=== PATIENT | male | born 1950 | race Caucasian/White ===

== ENCOUNTER 2018-05-17 08:49 | Outpatient (REF) | payer MEDICARE, MEDICAID, SELFPAY ==
[2018-05-17 14:44] LABS: ALT 32 U/L (12-78); AST 17 U/L (15-37); Albumin 4.2 g/dL (3.4-5.0); Alkaline Phosphatase 78 U/L (46-116); Anion Gap 8.3 mmol/L (3-11); BUN 13 mg/dL (7-18); Bilirubin, Total 0.6 mg/dL (0.2-1.0); CO2 29.7 mmol/L (21.0-32.0); CREATININE 0.73 mg/dL (0.70-1.30); Calcium 9.2 mg/dL (8.5-10.1); Chloride 101 mmol/L (98-107); Cholesterol 149 mg/dL (50-200); Glucose 117 mg/dL (70-100); HDL Cholesterol 56 mg/dL (40-60); LDL CHOLESTEROL 82 mg/dL (<100); Potassium 4.2 mmol/L (3.5-5.1); Sodium 139 mmol/L (136-145); Triglyceride 71 mg/dL (30-150)
[2018-05-17 15:27] LABS: Hemoglobin A1C 5.8 % (4.5-6.2)
== END 2018-05-17 09:09 ==
LOC: NCHCN 08:49
PROVIDERS: PCP Nurse Practitioner; Visit Provider Nurse Practitioner
DX: I10 Essential (primary) hypertension (principal); R73.9 Hyperglycemia, unspecified
CPT/HCPCS: 80053; 80061; 83721; 83036

== ENCOUNTER → 2019-02-25 10:20 | Outpatient (BNVA) | payer MEDICARE, MEDICAID, SELFPAY | PROVIDERS: PCP Nurse Practitioner; Referring Provider Nurse Practitioner; Visit Provider Physical Therapy Assistant | DX: Z12.11 Encounter for screening for malignant neoplasm of colon (principal); Z86.010 Personal history of colon polyps; I10 Essential (primary) hypertension ==

== ENCOUNTER 2019-03-14 07:59 | Day surgery (SDC) | payer MEDICARE, MEDICAID, SELFPAY ==
--- NOTE | 2019-03-14 06:46 | W.COLOREPORT ---
Date of service: 03/14/19 Time of Service: 09:11 Colonoscopy Report Date of procedure: 03/14/19 Pre-op diagnosis general: Hx of polyps and Family history of colon cancer Post-op diagnosis procedure note: same (and polyps and diverticulosis) Procedure: Colonoscopy with polypectomy by cold forceps Surgeon: Peg Major Anesthesia proc note operative: other (General/ ASA 2/Dameon Ayers, ELLIE) Estimated blood loss (mL): 5 Pathology: other (cecal polyp, ascending colon polyp x3) Complications: None Disposition: same day Indications: Mr. Pichardo is a pleasant 68-year-old gentleman who was seen in the office for repeat colonoscopy. His last colonoscopy was in 2016 where he was noted to have 2 tubular adenomas. He also has a family history of colon cancer in his father. Risks, benefits and complications have been reviewed. Complications include but are not limited to bleeding, pain, perforation, missed small lesion/polyp, sore throat, aspiration and adverse reaction to the medications. Questions were entertained and answered to their satisfaction and they wished to proceed. No guarantees were given or implied. Prep: Miralax/Dulcolax Procedure Start Time: :11 Procedure End Time: :54 Retraction Time: 27 Findings: Marginal prep in the right bowel Multiple small polyps and diverticulosis Procedure Description: After informed consent was obtained the patient was taken to the procedure room and placed in a left decubitous position. Monitors were applied and a time out was done. The patients name, date of , procedure, allergies to medications and metal in their body was reviewed. The patient was then sedated. Once sedated and comfortable a rectal exam was done. External exam was normal. Internal exam revealed a normal sphincter tone and no palpable masses. I was unable to feel the prostate due to the patients body habitus. The scope was then introduced and retro-flexed. Small internal hemorrhoids were identified. The scope was then advanced to the cecum with some difficulty. pressure had to be applied to the abdomen. The TI and appendiceal orifice were identified. The prep was marginal in the right colon. 2 Liters of irrigation was used to clean the bowel. The scope was then slowly retracted over 27 minutes back into the rectum. Polyps were removed with cold forceps in the cecum and ascending colon x3. The scope was removed and the patient was woken up and taken back to Same day surgery in stable condition. The patient tolerated the procedure well and there were no immediate complications. Follow up: The patient should follow up in 3 years unless they develop changes in bowel habits or other new gastrointestinal complaints.
--- NOTE | 2019-03-14 06:48 | W.PM.DSUDISC ---
Discharge Plan Disposition Patient Disposition: HOME Condition: Good Discharge Details Reason For Visit: Hx of polyps and Family history of colon cancer Attending Provider: Peg Major Primary Care Provider: Magaly Amin Home Meds and New Rx's Prescriptions: Continued aspirin 81 MG tablet,chewable 81 mg PO DAILY RF: 0 hydrochlorothiazide 25 MG tablet 25 mg PO DAILY RF: 0 losartan 100 MG tablet 100 mg PO DAILY RF: 0 atorvastatin 10 MG tablet 10 mg PO DAILY RF: 0 naproxen 500 MG tablet 500 mg PO BID RF: 0 Discontinued polyethylene glycol 3350 17 gram/dose powder 238 g PO ONCE Qty: 238 RF: 0 bisacodyl [Dulcolax (bisacodyl)] 5 mg tablet,delayed release (DR/EC) 5 mg PO ONCE Qty: 4 RF: 0 Discharge Instructions Instructions: Colonoscopy (GEN), Diverticulosis (ED), Colorectal Polyps (GEN) Additional Instructions: Findings: 4 polyps Diverticulosis Follow up: 3 years Please call if you develop: fevers >101.5 Nausea or Vomiting Abdominal pain that is not transient DAY SURGERY UNIT POST COLONOSCOPY INSTRUCTIONS 1. Because there will be medication in your system for the next 24 hours, you may feel a little sleepy. Your coordination will be affected. Therefore: a. Do not drive or operate dangerous equipment for 24 hours. b. Do not drink alcohol beverages for 24 hours (not even beer). c. Plan to go home and rest for the day. 2. Generally there are no restrictions on your activity after a day or so has gone by, but you may feel a bit fatigued for a few days. 3 After you arrive home you may have a light meal and return to a normal diet as you can tolerate it without feeling sick to your stomach. 4. After surgery, you may feel pain or discomfort. This should be only transient, but if it persists please contact your doctor. 5. If there are any questions regarding the findings of your procedure, please feel free to contact your doctor. 6. If you are unable to contact your doctor with a problem, contact the hospital at [phone]. 7. Continue all your regular medications unless directed otherwise. I understand the above instructions and have no questions. Signature of Patient or Responsible Adult Escort Date/Time Name of Responsible Adult Escort Signature of Nurse Date/Time Stand Alone Forms: Nirav Mendoza (RONELU) Activity:: Activity as Tolerated Diet:: High Fiber diet Discharge Orders Discharge Orders: Discharge Order (Routine); Ordered 03/14/19 Ordered By: Peg Major DS: Diagnosis Discharge Diagnosis (1) S/P colonoscopy: Status: Acute (2) Diverticulosis: Status: Acute (3) Colorectal polyps:
[2019-03-14 08:19] VITALS: BP 159/84; PULSE 78; RESP 16; TEMP 36.3; O2SAT 96
[2019-03-14] MEDS: Lactated Ringers 1,000 ML 80 ML IV (08:46)
--- NOTE | 2019-03-14 09:28 | BOWEL_PTH ---
PATIENT: Abisai Pichardo LOC: [facility] U#:[id number] AGE/SX: 68/M ROOM: RE03/14/[address]: Peg Major MD : [id number] BED: DIS: 03/14/2019 SPEC #: [id number] RECD: 03/14/19 12:00 STATUS: VALERIE REQ #: [id number] MAE: 03/14/19 09:[address]: Peg Major DEPT: Surgical Specimen RECD BY: Ilda Carrasco ENTERED: 03/14/19 12:02 SP TYPE: Bowel OTHR DR: Magaly Amin Tissues: 1 - BIOPSY BOWEL 2 - BIOPSY BOWEL Procedures: GROSS AND MICRO LEVEL 4 Comments: [id number]
[2019-03-14 10:30] VITALS: BP 134/71; PULSE 67; RESP 18; TEMP 36.1; O2SAT 98
== END 2019-03-14 10:45 | disposition home or self-care (01) ==
LOC: SUR 08:00
PROVIDERS: PCP Nurse Practitioner; Visit Provider Surgery
PROC: 0DJD8ZZ Inspection of Lower Intestinal Tract, Via Natural or Artificial Opening Endoscopic (ICD-10-PCS; CPT 45378; principal; 2019-03-14 09:30)
DX: Z12.11 Encounter for screening for malignant neoplasm of colon (principal); D12.0 Benign neoplasm of cecum; D12.2 Benign neoplasm of ascending colon; K57.30 Diverticulosis of large intestine without perforation or abscess without bleeding; K64.0 First degree hemorrhoids; Z86.010 Personal history of colon polyps; Z80.0 Family history of malignant neoplasm of digestive organs; G47.33 Obstructive sleep apnea (adult) (pediatric); I10 Essential (primary) hypertension
CPT/HCPCS: 45380; 88305

== ENCOUNTER 2019-05-20 09:13 | Outpatient (CLI) | payer MEDICARE, SELFPAY ==
[2019-05-20 10:03] LABS: Abs Immature Grans 0.02 k/cumm (0.0-0.09); Absolute Basophil Count 0.02 k/cumm (0.0-0.2); Absolute Eosinophil Count 0.19 k/cumm (0.0-0.7); Absolute Lymphocyte Count 1.78 k/cumm (1.2-3.4); Absolute Monocyte Count 0.74 k/cumm (0.11-0.7); Absolute Neutrophil Count 4.16 k/cumm (1.2-6.7); Basophils % 0.3; Eosinophils % 2.7; HCT 39.6 % (40.0-50.0); HGB 13.4 g/dL (13.5-17.5); Immature Grans % 0.3; Lymphocytes % 25.8; Mean Corp. HGB Concentration 33.8 g/dL (32.0-36.0); Mean Corpuscular Hemoglobin 28.9 pg (27.0-33.0); Mean Corpuscular Volume 85.3 fL (80-95); Mean Platelet Volume 9.3 fL (8.0-11.0); Monocytes % 10.7; Neutrophils % 60.2; Platelet Count 282 x1000/uL (130-400); RBC 4.64 m/cumm (4.50-6.00); RBC Distribution Width 13.1 % (11.8-14.1); White Blood Cell Count 6.91 k/cumm (4.4-10.8)
[2019-05-20 11:29] LABS: ALT 32 U/L (16-63); AST 17 U/L (15-37); Albumin 3.8 g/dL (3.4-5.0); Alkaline Phosphatase 74 U/L (46-116); Anion Gap 9.9 mmol/L (3-11); BUN 11 mg/dL (7-18); Bilirubin, Total 0.5 mg/dL (0.2-1.0); CO2 26.1 mmol/L (21.0-32.0); CREATININE 0.62 mg/dL (0.70-1.30); Calcium 9.1 mg/dL (8.5-10.1); Chloride 104 mmol/L (98-107); Glucose 97 mg/dL (70-100); Potassium 3.9 mmol/L (3.5-5.1); Sodium 140 mmol/L (136-145); Total Protein 6.7 g/dL (6.4-8.2)
[2019-05-20 12:13] LABS: D-Dimer 674 ng/mlFEU (<500)
[2019-05-20 12:26] LABS: ESR 10 mm/hr (1-20)
[2019-05-20 12:36] LABS: C-Reactive Protein 0.45 mg/dL (0.0-0.3)
== END 2019-05-20 09:33 ==
PROVIDERS: PCP Nurse Practitioner; Visit Provider Family Medicine
DX: I87.319 Chronic venous hypertension (idiopathic) with ulcer of unspecified lower extremity (principal); I10 Essential (primary) hypertension; R60.0 Localized edema
CPT/HCPCS: 36415; 80053; 85652; 85025; 85379; 86140

== ENCOUNTER 2019-05-23 01:52 | Outpatient (CLI) | payer MEDICARE, MEDICAID, SELFPAY ==
--- NOTE | 2019-05-23 12:20 | DI.US_ITS ---
EXAM: US LOWER EXTREMITY VENOUS RT CLINICAL HISTORY: RT LEG EDEMA R60.0 TECHNIQUE: Ultrasound performed using standard protocol. COMPARISON: No exams were available for comparison FINDINGS: Common femoral, femoral, and popliteal veins show normal compression, augmentation, and blood flow. There is no evidence of a deep venous thrombus in the right lower extremity. The saphenofemoral junc tion appears unremarkable. There is edema seen in the soft tissues of the lower extremity. IMPRESSION: No evidence of a right lower extremity deep venous thrombus.
== END 2019-05-23 02:12 ==
PROVIDERS: PCP Nurse Practitioner; Visit Provider Family Medicine
DX: R60.0 Localized edema (principal)
CPT/HCPCS: 93971

== ENCOUNTER → 2019-05-27 09:17 | Outpatient (BNVA) | payer MEDICARE, MEDICAID, SELFPAY | PROVIDERS: PCP Nurse Practitioner; Referring Provider Nurse Practitioner; Visit Provider Surgery | DX: Z51.89 Encounter for other specified aftercare (principal); I83.012 Varicose veins of right lower extremity with ulcer of calf; I83.891 Varicose veins of right lower extremity with other complications; I87.2 Venous insufficiency (chronic) (peripheral); L97.919 Non-pressure chronic ulcer of unspecified part of right lower leg with unspecified severity | CPT/HCPCS: 99213 ==

== ENCOUNTER 2019-05-27 11:14 | Outpatient (REF) | payer MEDICARE, SELFPAY ==
[2019-05-27 18:53] LABS: BUN 15 mg/dL (7-18); CREATININE 0.73 mg/dL (0.70-1.30); Calcium 9.5 mg/dL (8.5-10.1); Chloride 98 mmol/L (98-107); Glucose 111 mg/dL (70-100); Potassium 3.6 mmol/L (3.5-5.1); Sodium 137 mmol/L (136-145)
[2019-05-30 16:15] LABS: Hepatitis C Ab w Rflx HCV PCR Negative (NEGAT)
== END 2019-05-27 11:34 ==
LOC: NCHCN 11:14
PROVIDERS: PCP Nurse Practitioner; Visit Provider Family Medicine
DX: Z00.00 Encounter for general adult medical examination without abnormal findings (principal); I10 Essential (primary) hypertension; Z11.59 Encounter for screening for other viral diseases
CPT/HCPCS: 80048; 86803

== ENCOUNTER 2019-06-08 00:33 | Outpatient (CLI) | payer MEDICARE, MEDICAID, SELFPAY ==
--- NOTE | 2019-06-08 07:30 | DI.US_ITS ---
APPROVED REPORT EXAM: Comprehensive 2D, Doppler, and color-flow Echocardiogram Patient Location: Out-Patient Timber Girdler: Isis Caballero [facility] ([facility]) Rhythm: sinus Bradycardia Indications: mild aortic stenosis. i35.0 Conclusion Left Ventricle : The left ventricle is normal size. The left ventricular systolic function is normal. LV segmental wall motion appears normal. LVEF is 60-65%. There is grade 1 diastolic dysfunction. Right Ventricle : Right ventricle is dilated. The right ventricular systolic function is normal. Atria : The right atrium size is normal. Left atrium is dilated. Aortic Valve : Aortic valve is trileaflet. Aortic valve leaflets, and annulus are moderately scleroti c and thickened. Mild to moderate aortic regurgitation. Moderate to severe aortic stenosis. GARRY by VT I is 0.96cm2. Mean gradient is 35mmHg Mitral Valve : There is mild mitral annular calcification. Trivial to mild mitral regurgitation. No e vidence of mitral valve stenosis. Tricuspid Valve : The tricuspid valve is normal in structure. Trivial tricuspid regurgitation. Pulmonic Valve : Pulmonic valve leaflets are mildly thickened. Great Vessels : The ascending aorta is mildly dilated (4.1cm). IVC is normal in size and collapses >5 0% with inspiration. RVSP equals 21-24 mmHg. Compared to echocardiogram dated 10/10/2013, aortic valve stenosis has worsened. Wall motion Left Ventricle The left ventricle is normal size. The left ventricular systolic function is normal. There is top nor mal left ventricular wall thickness. LV segmental wall motion appears normal. There is grade 1 diasto lic dysfunction LVEF is 60-65%. Right Ventricle Right ventricle is dilated. The right ventricular systolic function is normal. Atria Left atrium is dilated. The right atrium size is normal. Aortic Valve Aortic valve is trileaflet. Aortic valve leaflets, and annulus are moderately sclerotic and thickened . Moderate to severe aortic stenosis. GARRY by VTI = 0.96cm2. Mean gradient = 35mmHg Mild to moderate a ortic regurgitation. Mitral Valve There is mild mitral annular calcification. No evidence of mitral valve stenosis. Trivial to mild srinivasan ral regurgitation. Tricuspid Valve The tricuspid valve is normal in structure. Trivial tricuspid regurgitation. Pulmonic Valve Pulmonic valve leaflets are mildly thickened. trivial pulmonic regurgitation. Great Vessels Aortic root is mildly dilated. The ascending aorta is mildly dilated (4.1cm). IVC is normal in size a nd collapses >50% with inspiration. RVSP equals 21-24 mmHg. Pericardium There is no pericardial effusion. 2D Dimensions IVSd 1.14 cm M: 0.6-1.2 LV EDV A2C 120.80 mL PWd 1.09 cm M: 0.6 - 1.2 LV EDV A4C 149.00 mL LVDd 4.96 cm M: 4.2 - 5.9 LA Volume Index A2C 36.27 mL/m2 LVDs 3.12 cm M: 2.5 - 4.0 LA Volume Index A4C 37.67 mL/m2 Aortic Root 3.66 cm M: 3.1 - 3.7 LA Volume Index Biplane 38.37 mL/m2 RA Area A4C 15.47 cm2 LA Area A4C 23.64 cm2 LVOT 2.23 cm (M/F) 1.5-2.5 LA Area A2C 24.08 cm2 Ascending Aorta 4.06 cm M: 2.6 - 3.4 EF AP4 64.50 % LVEF (Teich) 66.78 % EF AP2 61.42 % LVEF (Gordon's) 63.02 % M: 52 - 72 EF BP 63.02 % LV Volume 96.42 mL M: 62 - 150 LV Volume Index 41.20 mL/m2 M: 34 - 74 FS 37.07 % LV Diastology E/A Ratio 1.0 MED E' 0.08 (>0.07 m/s) LV E/e MED 10.57 (<14) LAT E' 0.09 (>0.1 m/s) LV E/e LAT 9.87 (<14) Pulm Vein s 0.37 m/s PV S/D Ratio 1.11 Pulm Vein d 0.33 m/s Pulm Vein a 0.25 m/s A-A Duration 127.08 msec Aortic Valve LVOT Area 3.91 cm2 LVOT Peak Tony. 0.92 m/s LVOT Mean Tony. 0.64 m/s LVOT Peak Gr. 3.42 mmHg GARRY Vmax Index 0.39 cm2/m2 LVOT Mean Gr. 1.85 mmHg LVOT VTI 0.23 m GARRY Mean Tony. Index 0.39 cm2/m2 AoV Peak Tony. 3.99 (0.5-1.3 m/s) AoV Mean Tony. 2.76 m/s AI PHT 611.52 msec AO Peak GR. 63.59 mmHg AO Mean GR. 34.72 (<5 mmHg) VTI Ratio 0.24 AV Regurg Decel. 2108.70 msec GARRY (VTI) 0.96 (2.5-4.5 cm2) GARRY (VTI) Index 0.41 cm/m2 Mitral Valve MV E Max Tony. 0.84 (0.4-1.3 m/s) MV A Velocity 0.84 (0.4-1.3 m/s) E/A Ratio 1.01 MV Decel. Time 248.26 (160-240 msec) MV PHT 71.99 msec MVA PHT 3.06 cm2 Tricuspid Valve TR P. Velocity 2.30 m/s TV Regurg Vmax 2.30 m/s TR P. Gradient 21.12 mmHg
== END 2019-06-08 00:53 ==
PROVIDERS: PCP Nurse Practitioner; Visit Provider Family Medicine
DX: I35.0 Nonrheumatic aortic (valve) stenosis (principal); I07.1 Rheumatic tricuspid insufficiency
CPT/HCPCS: 93306

== ENCOUNTER → 2019-06-17 08:49 | Outpatient (BNVA) | payer MEDICARE, MEDICAID, SELFPAY | PROVIDERS: PCP Nurse Practitioner; Referring Provider Nurse Practitioner; Visit Provider Surgery | DX: I83.891 Varicose veins of right lower extremity with other complications (principal) | CPT/HCPCS: 99212 ==

== ENCOUNTER 2019-08-12 07:53 | Outpatient (CLI) | payer MEDICARE, MEDICAID, SELFPAY | END 2019-08-12 08:13 | PROVIDERS: PCP Nurse Practitioner; Visit Provider Internal Medicine Cardiovascular Disease | DX: I35.0 Nonrheumatic aortic (valve) stenosis (principal); I10 Essential (primary) hypertension | CPT/HCPCS: 99214; 93005; 93010 ==

== ENCOUNTER 2024-12-01 13:26 | Emergency (ER) | payer MEDICARE, MEDICAID, SELFPAY ==
[2024-12-01] VITALS (27 sets, daily range): BP systolic 73–153; BP diastolic 50–101; PULSE 49–146; RESP 14–35; TEMP 36.7–36.8; O2SAT 92–97
--- NOTE | 2024-12-01 13:15 | RT.EKG_ITS ---
APPROVED REPORT Exam: Resting ECG Reason for Exam: Chest Pain Patient Location: E HR:125 bpm ECG Measurements Heart Rate 125 AXIS MD [id number] P [id number] QRSd 97 QRS 79 QT 338 T 138 QTc 488 Conclusion Atrial fibrillation...V-rate 82-172, irreg A-activity Nonspecific T abnormalities, lateral leads...T <-0.10mV, I aVL V5 V6
--- NOTE | 2024-12-01 13:50 | W.ED.GENAD ---
Discharge Plan Disposition Patient Disposition: Home Condition: Stable Discharge Details Clinical Impression: Aortic stenosis, A-fib Primary Care Provider: Unknown,Unknown ED Provider: Lei Zamarripa Home Meds and New Rx's Prescriptions: New Eliquis 5 mg tablet 5 mg PO BID Qty: 60 0RF metoprolol succinate 25 mg tablet extended release 24 hr 25 mg PO DAILY Qty: 30 0RF furosemide [Lasix] 20 mg tablet 20 mg PO DAILY Qty: 30 0RF Discharge Instructions Additional Instructions: I have placed you on a follow-up list to try and see a customer support coordinator soon as possible. Please take the furosemide, metoprolol and Eliquis as prescribed. You can follow-up with your primary care provider as well if you are not able to see the customer support coordinator in the next week or 2. If you feel significantly more ill, more short of breath or have severe chest pain return to the emergency department for reevaluation. HPI General Mode of arrival: ambulatory. Date/Time Provider Initiated Documentation: 12/01/24 13:28. Limitations to Documentation: no limitations. Information obtained by: patient. History of Present Illness 73 year old M presents to the emergency department with the chief complaint of dyspnea with exertion, described as moderate, Patient started experiencing this year(s) (1) and it has been constant. Rest improves symptom(s), Movement worsens symptoms . Patient notes shortness of breath; denies chest pain and fever/chills. Patient did receive the following treatments prior to arrival, none Related Data Home Medications ?Medication ?Instructions ?Recorded ?Confirmed apixaban 5 mg tablet (Eliquis) 5 mg PO BID #60 tabs 12/01/24 furosemide 20 mg tablet (Lasix) 20 mg PO DAILY #30 tabs 12/01/24 metoprolol succinate 25 mg 25 mg PO DAILY #30 tabs 12/01/24 tablet,extended release 24 hr Previous Rx's ?Medication ?Instructions ?Recorded apixaban 5 mg tablet (Eliquis) 5 mg PO BID #60 tabs 12/01/24 furosemide 20 mg tablet (Lasix) 20 mg PO DAILY #30 tabs 12/01/24 metoprolol succinate 25 mg 25 mg PO DAILY #30 tabs 12/01/24 tablet,extended release 24 hr Allergies Allergy/AdvReac Type Severity Reaction Status Date / Time No Known Allergies Allergy Verified 12/01/24 13:33 General Stated Complaint: SOB FLAVIO: 3 Review of Systems All systems reviewed & are unremarkable except as noted in HPI and below Constitutional Constitutional: Denies chills, Denies fever(s) and Denies weakness Cardiovascular Cardiovascular: Denies chest pain and Reports dyspnea Respiratory Respiratory: Denies cough and Reports dyspnea Gastrointestinal Gastrointestinal: Denies abdominal pain, Denies nausea and Denies vomiting Neurologic Neurologic: Denies weakness Psychiatric Psychiatric: Denies depression Exam Const General: no acute distress Orientation: alert HENMT Head: normal to inspection Ears: external ears normal General nose exam: external nose normal Mouth: moist mucous membranes Eyes General: appearance normal, both eyes and all related structures Neck Neck: normal visual inspection Resp Effort & Inspection: normal respiratory effort and able to speak in complete sentences Auscultation: clear to auscultation bilaterally Cardio Jugular venous pressure: no JVD Rate: regular rate Heart Sounds: murmur Skin General skin exam: no rashes or lesions noted Neuro General: patient alert and patient oriented x3 Extrem General: normal to inspection Psych Mental Status: mental status grossly normal Course Vital Signs Vital signs: Vital Signs Temperature 36.8 C 12/01/24 13:29 Pulse 49 L 12/01/24 13:29 Respiratory Rate 16 12/01/24 13:29 Blood Pressure 153/81 H 12/01/24 13:29 Pulse Oximetry 96 12/01/24 13:29 Temperature 36.8 C 12/01/24 13:29 Temperature Source Temporal Artery Scan 12/01/24 13:29 Pulse 49 L 12/01/24 13:29 Respiratory Rate 16 12/01/24 13:29 Blood Pressure 153/81 H 12/01/24 13:29 Blood Pressure Position Sitting 12/01/24 13:29 Pulse Oximetry 96 12/01/24 13:29 Oxygen Delivery Method Room Air 12/01/24 13:29 Oxygen Flow Rate 0 12/01/24 13:29 Pain Level 0 12/01/24 13:29 Medical Decision Making 73-year-old male with a history of hypertension but not on any meds currently and has known aortic stenosis and has not seen a medical provider or customer support coordinator in 4-1/2 years comes in with worsening dyspnea with exertion over the past year. Denies any chest pain or fevers. He is well-appearing speaking full sentences. He says that he has not had any falls or trauma. He does have a harsh systolic murmur that started at the right sternal border. Clear lung sounds, no JVD, no calf tenderness. I suspect his symptoms are due to aortic stenosis, will check a CBC, CMP and troponins and a chest x-ray. His EKG does show A-fib which would also be a new diagnosis for him. Other than elevated proBNP labs show no significant findings. Delta troponin pending. X-ray does show signs of CHF. I will give him a dose of Lasix as he has been on this back when he was seen cardiology in 2020. We do not have echocardiogram capabilities tomorrow. I did reach out to [facility] but they unfortunately unable accept any transfers and after discussion with patient the patient declines to be transferred at this current time. He is currently hemodynamically stable, he is in new A-fib with rates in the 90-100,and after discussion with him I am going to initiate Eliquis therapy for him. I will prescribe him furosemide and low-dose metoprolol. I will place a referral to see cardiology soon as possible. Return precautions given Differential Diagnosis Differential Diagnosis: aortic stenosis, anemia, acs Medical Records Medical records reviewed: Yes I reviewed the patient's medical records. Lab Data Lab results reviewed: Yes I reviewed the patient's lab results. ECG Data Attestation: I personally reviewed and interpreted this ECG (s) as follows: Prior ECG tracings: available for review Interpretation: Afib rate of 125 no stemi Quality:SDOH Health Related Social Needs: No Data to Display PFSH All Active Problems (Updated 12/01/24 @ 16:10 by Lei Zamarripa MD) A-fib (Chronic) Aortic stenosis (Chronic) Venous stasis ulcer of ankle limited to breakdown of skin (Acute) Leg edema (Acute) Venous stasis dermatitis (Acute) Venous stasis ulcer of right lower leg with edema of right lower leg (Acute) Diverticulosis (Acute) Hyperlipidemia (Chronic) Aortic stenosis, mild (Chronic) Hypertension (Chronic) Osteoarthritis of left knee (Acute 06/27/13) uses device Medical History (Updated 12/01/24 @ 16:10 by Lei Zamarripa MD) Colorectal polyps Obstructive sleep apnea Elevated glucose Adenomatous colon polyp Degenerative joint disease of spine Chronic pain Obesity Ventricular hypertrophy Surgical History History of bilateral knee replacement Arthroplasty (06/27/13) Total knee, Left Social History (Updated 08/12/19 @ 09:07 by Ruth Ferrer RN) Smoking/Tobacco Use Status: Former Tobacco Use Quit Date: 02/24/85 Smoking risk assessment performed?: Yes Alcohol Intake: current Alcohol Intake frequency: 0-2 drinks per day Alcohol type: beer Drug use: Daily Substance use type: marijuana What type of physical activity do you participate in: none Do you feel safe at home: Yes Do you feel safe in your relationship?: Yes PAWSS Have you Been Recently Intoxicated or Drunk Within the Last 30 days?: No Have you Ever Experienced Previous Episodes of Alcohol Withdrawal?: No Have you ever Experienced Withdrawal Seizures?: No Have you ever Experienced Delirium Tremens(DT)s?: No Have you ever undergone Alcohol Rehabilitation Treatment (i.e, inpt ot outpatient treatment programs)?: No Have you ever Experienced Blackouts?: No Have you ever Combined Alcohol with other Downers within the last 90 days?: No Have you ever Combined Alcohol with any other Substance of Abuse during the last 90 days?: No Positive Blood Alcohol level on Presentation? [PCS.BAL]: No Evidence of Increased Autonomic Activity (i.e. HR>120, tremor, sweating, agitation, nausea)?: No Result: 0
[2024-12-01 14:05] LABS: Abs Immature Grans 0.01 10^3/uL (0.0-0.06); Absolute Basophil Count 0.05 10^3/uL (0.0-0.2); Absolute Eosinophil Count 0.05 10^3/uL (0.0-0.7); Absolute Lymphocyte Count 1.19 10^3/uL (1.2-3.4); Absolute Monocyte Count 0.59 10^3/uL (0.1-0.8); Absolute Neutrophil Count 6.24 10^3/uL (1.2-6.7); Basophils % 0.6 %; Eosinophils % 0.6 %; HCT 44.8 % (40.0-50.0); HGB 14.5 g/dL (13.5-17.5); Immature Grans % 0.1 %; Lymphocytes % 14.6 %; MCH 28.4 pg (27.0-33.0); MCHC 32.4 % (32.0-36.0); MCV 88 fL (80-95); MPV 9.3 fL (8.0-11.0); Monocytes % 7.3 %; Neutrophils % 76.8 %; Platelet Count 258 10^3/uL (130-400); RBC 5.11 10^6/uL (4.36-5.78); RDW 14.6 % (11.8-14.1); RDW-SD 47.2 fL; WBC 8.13 10^3/uL (4.4-10.8)
[2024-12-01 14:19] LABS: INR 1.2 (0.9-1.1); PTT Activated 26.3 sec (20.6-30.2); Prothrombin Time 11.5 sec (9.1-11.1)
--- NOTE | 2024-12-01 14:23 | DI.RAD_ITS ---
Exam(s) XR PORTABLE CHEST AP EXAM: XR PORTABLE CHEST AP CLINICAL HISTORY: shortness of breath TECHNIQUE: 2D digital imaging was performed. COMPARISON: No exams were available for comparison FINDINGS: Overlying monitoring leads. LUNGS: Blunting at the right costophrenic angle. Question of mild blunting at the left costophrenic angle. Linear atelectasis or scarring in the left mid lung field. No focal area of consolidation. There is vascular prominence of the peribronchial thickening which could indicate mild CHF. HEART: Enlarged. AORTA: Normal diameter. BONES: Unremarkable for age. Soft tissues: Unremarkable. IMPRESSION: Tiny bilateral pleural effusions. Cardiomegaly and mild CHF. DATA REPOSITORY: RADIATION DOSE DELIVERED:
[2024-12-01 14:27] LABS: ALT 20 U/L (16-63); AST 18 U/L (15-37); Albumin 3.9 g/dL (3.4-5.0); Alkaline Phosphatase 140 U/L (46-116); Anion Gap 9.7 mmol/L (3-11); BUN 16 mg/dL (7-18); Bilirubin, Total 1.8 mg/dL (0.2-1.0); CO2 24.3 mmol/L (21.0-32.0); Calcium 9.2 mg/dL (8.5-10.1); Chloride 104 mmol/L (98-107); Estimated GFR 80.47 (mL/min/1.73m2); Glucose 128 mg/dL (74-106); Magnesium 1.9 mg/dL (1.8-2.4); NT-proBNP 6594 pg/mL (<300); Potassium 4.1 mmol/L (3.5-5.1); Sodium 138 mmol/L (136-145); Total Protein 7.5 g/dL (6.4-8.2); Troponin I 36 ng/L (<or=76)
[2024-12-01 15:12] LABS: Troponin I 40 ng/L (<or=76)
[2024-12-01] MEDS: Furosemide 20 MG/2 ML VIAL IVP (15:45)
[2024-12-01] MEDS: Metoprolol CR 25 MG TABCR PO (16:40)
== END 2024-12-01 16:53 | disposition home or self-care (01) ==
PROVIDERS: Emergency Provider Emergency Medicine
DX: I48.91 Unspecified atrial fibrillation (principal); I35.0 Nonrheumatic aortic (valve) stenosis
CPT/HCPCS: 99285; 99284; 96374; 80053; 93005; 71045; 83735; 83880; 84484; 85025; 85610; 85730; 93010; J1938

== ENCOUNTER 2024-12-07 02:03 | Outpatient (CLI) | payer MEDICARE, MEDICAID, SELFPAY ==
--- NOTE | 2024-12-07 10:30 | DI.US_ITS ---
APPROVED REPORT EXAM: Comprehensive 2D, Doppler, and color-flow Echocardiogram Patient Location: Out-Patient Amplifier Mechanic: Adrian Catherine RDCS ([facility]) Indications: New onset afib Other Information Study Quality: Adequate Conclusion Mildly dilated left ventricle. Ejection fraction is 35%. There is global hypokinesis Right ventricle is enlarged and hypocontractile Both atria are severely enlarged The aortic valve is calcified and probably trileaflet. There is mild aortic regurgitation. There is severe aortic stenosis. Peak gradient is 65, mean 47 mmHg. Calculated aortic valve area 0.7 cm?? Mitral annular calcification, thickened mitral leaflets. Moderate mitral regurgitation Moderate tricuspid regurgitation. Estimated right ventricular systolic pressure is 40 mmHg Dilated ascending aorta measuring 4.13 cm Wall motion Left Ventricle Left ventricle is mildly dilated. Left ventricular systolic function is moderately decreased. There i s normal left ventricular wall thickness. There is global hypokinesis of the left ventricle. There is no ventricular septal defect visualized. LVEF is 35%. Right Ventricle Right ventricle is moderately dilated. Right ventricle is hypokinetic. Atria Left atrium is severely dilated. Right atrium is severely dilated. The interatrial septum is intact w ith no evidence for an atrial septal defect. Aortic Valve Aortic valve is calcified. Aortic valve is probably trileaflet. Severe aortic stenosis. Peak aortic v alve gradient is 65.46 mmHg. Highest mean aortic valve gradient is 42.42 mmHg. Calculated GARRY by the continuity equation is 0.7 cm2. Mild aortic regurgitation. Mitral Valve The mitral valve is moderately thickened. Mild mitral annular calcification. No evidence of mitral va lve stenosis. Moderate mitral regurgitation. Tricuspid Valve The tricuspid valve is normal in structure. There is no tricuspid valve stenosis. Moderate tricuspid regurgitation. The RVSP is 40.3 mmHg. Pulmonic Valve Pulmonic valve is not well visualized. There is no pulmonic valvular stenosis. There is no pulmonic v alvular regurgitation. Great Vessels The aortic root is normal in size. The ascending aorta is severely dilated. Aortic arch is normal in caliber. The IVC collapses <50% with inspiration. Pericardium There is no pericardial effusion. 2D Dimensions IVSD d PLAX 1.06 cm M: 0.6-1.2 Ao Root d 3.26 cm M: 3.1 - 3.7 LVPW d PLAX 1.06 cm M: 0.6 - 1.2 Ao Asc Diam d 4.13 cm M: 2.6 - 3.4 LVID d PLAX 7.09 cm M: 4.2 - 5.8 LVDs 6.08 cm M: 2.5 - 4.0 LV EF Teichholz 29.6 % FS 14.33 % LV EDV (Teich) 263.1 mL LV ESV (Teich) 185.3 mL Stroke Vol Index (Teich) 34.00 M-Mode TAPSE 1.02 cm (M/F) >1.7 Auto EF LV EDV A4C 201.3 mL LV EDV A2C 254.7 mL LV EDV BP 230.0 mL LV ESV A4C 139.4 mL LV ESV A2C 169.5 mL LV ESV BP 153.8 mL LVEF(%) A4C 30.7 % LVEF(%) A2C 33.4 % LVEF(%) BP 33.1 % LV SV A4C 61.9 ml LV SV A2C 85.2 ml LV SV BP 76.2 ml LV CO A4C 5.6 L/min LV CO A2C 9.6 L/min LV CO BP 7.6 L/min HR A4C 90.91 BPM HR A2C 113.15 BPM LV EDV Index (BP) LA Volume LA Length A4C 7.2 cm LA Length A2C 6.3 cm LA Area A4C s 29.67 cm2 LA Area A2C s 24.90 cm2 LA Vol A4C A-L 104.35 mL LA Vol A2C A-L 83.27 mL LA Vol Biplane A-L 99.2 mL LA Vol/BSA A4C A-L LA Vol/BSA A2C A-L LA Vol/BSA BP A-L 43.3 mL/m2 LA Vol A4C MOD 103.1 mL LA Vol A2C MOD 81.2 mL LA Vol BP MOD 97.1 mL RA Volume RA Area A4C 25.5 cm2 RA ESV A4C (A-L) 84.7mL RA Vol/BSA A4C A-L RA Length A4C 6.5 cm RA ESV A4C (MOD) 83.9mL LV Diastology MV E' medial 0.046 (>0.07 m/s) MV E Vmax 1.24 (0.4-1.3 m/s) MV E' lateral 0.078 (>0.1 m/s) Aortic Valve AoV Vmax 4.05 m/s LVOT Vmax 0.76 m/s AoV Peak Grad 48.4 mmHg LVOT Peak Grad 2.3 mmHg AoV Area (Vmax) 0.75 cm2 LVOT VTI 0.160 m AoV VTI 0.970 m LVOT Mean Grad 1.1 mmHg AoV Mean Tony. 3.11 m/s LVOT SV 63.51 mL AoV Mean Grad 42.4 mmHg LVOT Diam s 2.25 cm AoV Area (VTI) 0.65 cm2 AV Regurg Peak Gr. 65.46 mmHg Velocity Ratio 0.19 AR Decel [place] 1.8m/sec2 AR DT 1573 msec AR PHT 456 msec AR Vmax 2.79 m/s Tricuspid Valve RA Pressure 8.00 mmHg TR Vmax 2.84 m/s TR Peak Grad 32.3 mmHg RVSP (TR) 40.3 mmHg
== END 2024-12-07 02:23 ==
PROVIDERS: PCP Family Medicine; Visit Provider Family Medicine
DX: I51.7 Cardiomegaly (principal)
CPT/HCPCS: 93306

== ENCOUNTER 2024-12-12 08:05 | Outpatient (CLI) | payer MEDICARE, MEDICAID, SELFPAY ==
--- NOTE | 2024-12-12 08:00 | RT.EKG_ITS ---
APPROVED REPORT Exam: Resting ECG Reason for Exam: afib Patient Location: O HR:83 bpm ECG Measurements Heart Rate 83 AXIS NC [id number] P [id number] QRSd 117 QRS 70 QT 428 T 53 QTc 503 Conclusion Atrial fibrillation...V-rate 62-101, irreg A-activity Ventricular premature complex...V complex w/ short R-R interval Nonspecific intraventricular conduction delay...QRSd >115mS, not LBBB/RBBB
== END 2024-12-12 08:06 | disposition home or self-care (01) ==
LOC: DI.CARD 08:07
PROVIDERS: PCP Family Medicine; Visit Provider Registered Nurse
DX: I48.91 Unspecified atrial fibrillation (principal)
CPT/HCPCS: 93010

== ENCOUNTER → 2024-12-12 08:05 | Outpatient (BNVA) | payer MEDICARE, MEDICAID, SELFPAY | PROVIDERS: PCP Family Medicine; Visit Provider Registered Nurse | DX: I35.0 Nonrheumatic aortic (valve) stenosis (principal); I48.91 Unspecified atrial fibrillation | CPT/HCPCS: 99215; 93005 ==

== ENCOUNTER 2025-04-10 00:41 | Outpatient (CLI) | payer MEDICARE, MEDICAID, SELFPAY ==
--- NOTE | 2025-04-10 | DI.RAD_ITS ---
Exam(s) XR CHEST 2V PA LATERAL EXAM: XR CHEST 2V PA LATERAL CLINICAL HISTORY: AORTIC VALVE REPLACEMENT Z95.2 S/P CABG LOOK FOR PTX EFFUSIONS TECHNIQUE: 2D digital imaging was performed of the chest. Two images were obtained. PA and lateral views were obtained. COMPARISON: CR XR PORTABLE CHEST AP from 12/01/2024 FINDINGS: MEDIASTINUM: Normal. HEART: Mild cardiomegaly. Status post CABG in the interim. There is an aortic valve replacement. PULMONARY VASCULATURE: There is stable mild prominence of the pulmonary vasculature which may reflect some degree of pulmonary artery hypertension. LUNGS: There is a left basilar infiltrate. The right lung is clear. PLEURAL SPACE: There are small bilateral pleural effusions. There is no pneumothorax. BONE:Within normal limits for the patient's age. OTHER FINDINGS:Normal. IMPRESSION: 1. Small bilateral pleural effusions. 2. There is no evidence of a pneumothorax. 3. Left basilar infiltrate which may represent atelectasis or pneumonia. DATA REPOSITORY: RADIATION DOSE DELIVERED:
== END 2025-04-10 01:01 ==
LOC: DI 00:41
PROVIDERS: PCP Family Medicine; Visit Provider Family Medicine
DX: Z95.2 Presence of prosthetic heart valve (principal); J90 Pleural effusion, not elsewhere classified
CPT/HCPCS: 71046

== ENCOUNTER 2025-06-14 10:31 | Outpatient (REF) | payer MEDICARE, MEDICAID, SELFPAY ==
[2025-06-14 15:26] LABS: HCT 30.4 % (40.0-50.0); HGB 8.8 g/dL (13.5-17.5); MCH 25.0 pg (27.0-33.0); MCHC 28.9 % (32.0-36.0); MCV 86 fL (80-95); MPV 9.8 fL (8.0-11.0); Platelet Count 364 10^3/uL (130-400); RBC 3.52 10^6/uL (4.36-5.78); RDW 19.7 % (11.8-14.1); RDW-SD 62.6 fL; WBC 6.27 10^3/uL (4.4-10.8)
[2025-06-14 15:49] LABS: Hemoglobin A1C 5.1 % (<5.7)
[2025-06-14 16:04] LABS: Vitamin D 25 Total 12 ng/mL (30-100)
[2025-06-14 16:07] LABS: ALT 30 U/L (10-49); AST 30 U/L (<34); Albumin 4.4 g/dL (3.4-5.0); Alkaline Phosphatase 157 U/L (46-116); Anion Gap 8.6 mmol/L (3-11); BUN 15 mg/dL (9-23); Bilirubin, Total 0.90 mg/dL (0.2-1.2); CO2 26.4 mmol/L (20.0-31.0); Calcium 9.3 mg/dL (8.3-10.6); Chloride 106 mmol/L (98-107); Cholesterol 87 mg/dL (<200); Glucose 103 mg/dL (74-106); HDL Cholesterol 43 mg/dL (>40); Potassium 4.3 mmol/L (3.5-5.1); Sodium 141 mmol/L (136-145); TSH 3.97 uIU/mL (0.55-4.78); Total Protein 7.2 g/dL (5.7-8.2)
[2025-06-14 22:57] LABS: PSA, Screening 0.5 ng/mL (<=6.5)
[2025-06-15 19:19] LABS: Hepatitis C Ab w Rflx HCV PCR Negative (Negative)
== END 2025-06-14 10:32 | disposition home or self-care (01) ==
LOC: NCHCN 10:31
PROVIDERS: PCP Family Medicine; Visit Provider Family Medicine
DX: R63.4 Abnormal weight loss (principal); Z11.59 Encounter for screening for other viral diseases; Z13.1 Encounter for screening for diabetes mellitus; Z12.5 Encounter for screening for malignant neoplasm of prostate; E78.5 Hyperlipidemia, unspecified
CPT/HCPCS: 80053; 80061; 82306; 84153; 85027; 86803; 83036; 84443